=== PATIENT | male | born 1990 | race Caucasian/White ===

== ENCOUNTER → 2020-06-14 | Outpatient (CLI) | payer BC | END | disposition home or self-care (01) | LOC: LABWHC1 09:58 | PROVIDERS: ATTEND Emergency Medicine | DX: Z20.828 Contact with and (suspected) exposure to other viral communicable diseases (principal) | CPT/HCPCS: U0003; C9803 ==

== ENCOUNTER → 2021-10-28 | Outpatient (CLI) | payer OTHER ==
--- NOTE | 2021-10-28 09:57 | XR ---
EXAMINATION TYPE: XR chest 2V, XR ribs RT DATE OF EXAM: 10/28/2021 COMPARISON: NONE HISTORY: Chest and right-sided rib pain after injury yesterday. TECHNIQUE: Frontal and lateral views of the chest are obtained. A frontal and oblique images of the right-sided ribs. FINDINGS: There is no focal air space opacity, pleural effusion, or pneumothorax seen. The cardiac silhouette size is within normal limits. Scoliosis is present. Dedicated images of the right-sided ribs show no acute displaced fracture. Overlying soft tissue is u nremarkable. IMPRESSION: 1. No acute cardiopulmonary process. 2. No acute displaced right-sided rib fracture.
== END | disposition home or self-care (01) ==
LOC: RADXRMAIN 09:23
PROVIDERS: ATTEND Emergency Medicine
DX: R07.81 Pleurodynia (principal); R07.9 Chest pain, unspecified; S29.9XXA Unspecified injury of thorax, initial encounter
CPT/HCPCS: 71046